=== PATIENT | female | born 1995 | race Two or more races ===

== ENCOUNTER 2017-01-26 16:18 | Emergency (ER) | payer SELFPAY ==
[~2017-01-26] VITALS: Ht 162.6 cm; Wt 81.6 kg
[~2017-01-26 16:18] MED LIST: PREN-96 OR
[2017-01-26 17:48] LABS: Basophils # (auto) 0 uL; Basophils % (auto) 0.2 % (0.0-2.0); DEFINITIVE VIEW TRANSMISSION; Eosinophils # (auto) 0.1 uL; Eosinophils % (auto) 0.6 % (0.0-7.0); Hematocrit 36.5 % (36.0-46.0); Hemoglobin 11.7 g/dL (12.2-16.2); Lymphocytes # (auto) 1.3 uL; Lymphocytes % (auto) 13.6 % (10.0-50.0); Mean Corpuscular Hemoglobin 24.1 pg (28.0-32.0); Mean Corpuscular Hgb Conc. 32.2 g/dL (32.0-36.0); Mean Platelet Volume 7.2 fL (7.4-10.4); Monocytes # (auto) 0.5 uL; Monocytes % (auto) 5.3 % (0.0-12.0); Neutrophils # (auto) 7.6 uL; Neutrophils % (auto) 80.3 % (37.0-80.0); Platelet Count (auto) 433 10^3/uL (140-450); White Blood Cell 9.5 10^3/uL (4.4-10.8)
[2017-01-26 18:12] LABS: Albumin 3.4 g/dL (3.4-5.0); Alkaline Phosphatase 162 U/L (45-117); Anion Gap 9 (5-15); Aspartate Aminotransferase 869 U/L (15-37); Bilirubin, Total 1.1 mg/dL (0.2-1.0); Blood Urea Nitrogen 12 mg/dL (7-18); Calcium 8.9 mg/dL (8.5-10.1); Carbon Dioxide 32 mmol/L (21-32); Chloride 105 mmol/L (98-107); GFR African American 125 mL/min; GFR Non-African American 104 mL/min; Glucose 101 mg/dL (74-106); Potassium 4.2 mmol/L (3.5-5.1); Sodium 146 mmol/L (136-145); Total Protein 7.8 g/dL (6.4-8.2)
[2017-01-26 23:17] LABS: Urine RBC None Seen /hpf (0 - 4)
[2017-01-26 23:39] LABS: Urine Blood Negative /uL (Negative); Urine Color Yellow (Yellow); Urine Glucose Normal (Normal); Urine Ketone Negative (Negative); Urine Mucus FEW (None Seen); Urine Nitrite Negative (Negative); Urine Squamous Epithelial Cell MANY /hpf (<5); Urine pH 7.5 (5.0-8.0)
[2017-01-26 23:46] LABS: Urine Bilirubin 1+ (Negative)
[2017-01-27] MEDS ORDERED: MORPHINE SULFATE 4 MG/ML SYRG IV ONE (02:30)
[2017-01-27] MEDS ORDERED: ONDANSETRON HCL 4 MG/2 ML VIAL IV ONE (02:30)
[2017-01-27] MEDS ORDERED: SODIUM CHLORIDE 0.9% 2,000 ML IV ONE (02:30)
[2017-01-27 04:00] VITALS: BP 112/62
== END 2017-01-27 04:28 | disposition short-term general hospital (02) ==
LOC: ER 16:18 → EDBD 16:18 → ER 01-27 04:28
DX: K80.21 Calculus of gallbladder without cholecystitis with obstruction (principal); J45.909 Unspecified asthma, uncomplicated; R74.0 Nonspecific elevation of levels of transaminase and lactic acid dehydrogenase [LDH]; Z88.0 Allergy status to penicillin
CPT/HCPCS: 36415; 76705; 80053; 81001; 81025; 84484; 85025; 96361; 96374; 96375; 99285; G0434; J2270; J2405; J7030

== ENCOUNTER 2022-03-29 14:22 | Inpatient (IN) | payer MEDICAID, OTHER ==
[~2022-03-29] VITALS: Ht 157.5 cm; Wt 72.6 kg
[2022-03-29] MEDS ORDERED: DERMOPLAST 60ML BOTTLE TOP PRN (18:15)
[2022-03-29] MEDS ORDERED: WITCH HAZEL-GLYCERIN PAD TOP PRN (18:15)
[2022-03-29] MEDS ORDERED: PHISODERM TOP SOLN 240ML BTL TOP PRN (18:15)
[2022-03-29 19:04] LABS: Basophils # (auto) 0 10 ^3/uL (0-0.2); Basophils % (auto) 0.3 % (0.0-2.0); Eosinophils # (auto) 0.1 10 ^3/uL (0-0.8); Hemoglobin 7.9 g/dL (12.2-16.2); Monocytes # (auto) 0.6 10 ^3/uL (0-1.3); Neutrophils # (auto) 8.6 10 ^3/uL (1.6-8.6); Neutrophils % (auto) 83.2 % (37.0-80.0); White Blood Cell 10.3 10^3/uL (4.4-10.8)
[2022-03-29 19:06] LABS: Eosinophils % (auto) 1.1 % (0.0-7.0); Lymphocytes % (auto) 9.7 % (10.0-50.0); Mean Corpuscular Hgb Conc. 32.7 g/dL (32.0-36.0); Mean Corpuscular Volume 64.2 fL (80.0-100.0); Monocytes % (auto) 5.7 % (0.0-12.0); Nucleated Red Blood Cells % 0.4 %; Red Blood Cells 3.74 10^6/uL (4.0-5.20); Red Cell Distribution Width 16.9 % (11.8-14.3)
[2022-03-29 19:14] LABS: INR 0.92 (0.9-1.15); Partial Thromboplastin Time 26.1 sec (23.6-33.0)
[2022-03-29 19:17] LABS: Albumin 1.8 g/dL (3.4-5.0); BUN/Creatinine Ratio 10.3; Calcium 8.4 mg/dL (8.5-10.1)
[2022-03-29 19:19] LABS: Bilirubin, Total 0.3 mg/dL (0.2-1.0); Total Protein 6.4 g/dL (6.4-8.2)
[2022-03-29] MEDS ORDERED: cefTRIAXone 1GM/50ML D5W 50 ML IV SCH (20:00)
[2022-03-29] MEDS: LACTATED RINGER'S 1,000 ML IV SCH (20:22)
[2022-03-29] MEDS: miSOPROStol 50 MCG per PRE-CUT 1/2 TAB VG PRN (21:00)
[2022-03-29 22:48] LABS: Urine Bacteria MANY /hpf (None Seen); Urine Blood Negative /uL (Negative); Urine Specific Gravity 1.007 (1.001-1.035); Urine WBC 1 /hpf (0 - 5)
[2022-03-29 23:03] LABS: Amphetamine Screen, Urine NEGATIVE (NEGATIVE); Barbiturate Scree,Urine NEGATIVE (NEGATIVE); Benzodiazephine Screen, Urine NEGATIVE (NEGATIVE); Cannabinoid Screen, Urine NEGATIVE (NEGATIVE); Cocaine Screen, Urine NEGATIVE (NEGATIVE); Opiate Scree,Urine NEGATIVE (NEGATIVE); Phencyclidine Screen, Urine NEGATIVE (NEGATIVE)
[2022-03-30] MEDS: miSOPROStol 50 MCG per PRE-CUT 1/2 TAB VG PRN ×3 (03:08→11:39)
[2022-03-30] MEDS: LACTATED RINGER'S 1,000 ML IV SCH ×3 (03:51→18:15)
[2022-03-30] MEDS: BUTORPHANOL TARTRATE 2 MG/1 ML VIAL IV PRN ×3 (04:04→23:17)
[2022-03-30] MEDS: FERROUS SULFATE 325mg EC TAB PO SCH ×2 (07:34→18:30)
[2022-03-30] MEDS: cefTRIAXone 1GM/50ML D5W 50 ML IV SCH (08:32)
[2022-03-30] MEDS ORDERED: miSOPROStol 100 mcg TAB ONE (11:35)
[2022-03-30] MEDS: miSOPROStol 50 MCG per PRE-CUT 1/2 TAB PO PRN ×2 (18:06→22:12)
[2022-03-30] MEDS ORDERED: fentaNYL CITRATE 100 MCG/2 ML VL ONE (23:57)
[2022-03-31] MEDS ORDERED: LACT. RINGERS/OXYTOCIN 20UNITS 1,000 ML IV ONE (01:08)
[2022-03-31] MEDS: LACTATED RINGER'S 1,000 ML IV SCH (02:15)
[2022-03-31] MEDS ORDERED: ONDANSETRON ODT 4 MG TAB PO PRN (05:45)
[2022-03-31 06:59] VITALS: BP 119/67
[2022-03-31 07:07] LABS: Rubella Antibodies, IgG <0.90 index (Immune >0.99)
[2022-03-31] MEDS: FERROUS SULFATE 325mg EC TAB PO SCH ×2 (08:04→17:58)
[2022-03-31] MEDS: cefTRIAXone 1GM/50ML D5W 50 ML IV SCH (08:45)
[2022-03-31] MEDS: SODIUM CHLORIDE 0.9% 1,000 ML IV SCH (08:46)
[2022-03-31] MEDS: IBUPROFEN 600 MG TAB PO PRN ×2 (10:30→21:54)
[2022-03-31 10:48] VITALS: BP 116/74
[2022-03-31] MEDS: ACETAMINOPHEN 325 MG TAB PO PRN ×2 (13:38→18:01)
[2022-03-31] MEDS ORDERED: TETANUS-DIPTH-ACEL PERTUSSIS 0.5ML SYR Tdap IM ONE (14:00)
[2022-03-31 15:00] VITALS: BP 119/80
[2022-03-31 18:55] VITALS: BP 103/58
[2022-03-31] MEDS ORDERED: DOCUSATE SOD 100 MG CAP PO SCH (22:00)
[2022-03-31 22:35] VITALS: BP 117/65
[2022-04-01 02:37] VITALS: BP 121/73
[2022-04-01 07:30] VITALS: BP 136/87
[2022-04-01] MEDS: IBUPROFEN 600 MG TAB PO PRN (08:03)
[2022-04-01] MEDS: FERROUS SULFATE 325mg EC TAB PO SCH (08:04)
[2022-04-01] MEDS ORDERED: DOXYCYCLINE 100 MG TAB/CAP PO ONE (08:45)
[2022-04-01] MEDS: cefTRIAXone 1GM/50ML D5W 50 ML IV SCH (09:13)
[2022-04-01] MEDS: SODIUM CHLORIDE 0.9% 1,000 ML IV SCH (09:17)
[2022-04-01] MEDS ORDERED: DOXY100C2 PO ×2 (09:45→11:06)
[2022-04-01 11:09] VITALS: BP 117/69
[2022-04-01] MEDS ORDERED: FER325T PO (12:09)
[2022-04-01] MEDS ORDERED: MEASLES, MUMPS & RUBELLA VAC(MMRII) 0.5ML SC ONE (13:00)
[2022-04-01] MEDS: ACETAMINOPHEN 325 MG TAB PO PRN (13:32)
[2022-04-01 15:02] VITALS: BP 115/75
== END 2022-04-01 17:20 | disposition home or self-care (01) | DRG 560 ==
LOC: LDRP 14:22 → OBSVTOIN 16:50 → LDRP 17:08
PROVIDERS: ADMIT Obstetrics & Gynecology; ATTEND Obstetrics & Gynecology
PROC: 3E0DXGC Introduction of Other Therapeutic Substance into Mouth and Pharynx, External Approach (ICD-10-PCS; 2022-03-30)
PROC: 3E0P7VZ Introduction of Hormone into Female Reproductive, Via Natural or Artificial Opening (ICD-10-PCS; 2022-03-30)
PROC: 10D07Z6 Extraction of Products of Conception, Vacuum, Via Natural or Artificial Opening (ICD-10-PCS; principal; 2022-03-31)
DX: O60.14X0 Preterm labor third trimester with preterm delivery third trimester, not applicable or unspecified (principal); Z37.1 Single stillbirth; O75.3 Other infection during labor; O36.4XX0 Maternal care for intrauterine death, not applicable or unspecified; O32.1XX0 Maternal care for breech presentation, not applicable or unspecified; N39.0 Urinary tract infection, site not specified; F43.22 Adjustment disorder with anxiety; Z20.822 Contact with and (suspected) exposure to COVID-19; O99.02 Anemia complicating childbirth; O99.344 Other mental disorders complicating childbirth; Z3A.29 29 weeks gestation of pregnancy; Z88.0 Allergy status to penicillin; Z59.02 Unsheltered homelessness; Z56.0 Unemployment, unspecified
CPT/HCPCS: 36415; 59409; 76805; 80053; 80307; 81001; 85025; 85610; 85730; 86592; 86703; 86762; 86850; 86900; 86901; 86920; 87340; 90715; 94760; 96360; 96361; 96365; 96366; 96372; 96374; 96375; G0378; J0696; J2590

== ENCOUNTER 2024-09-09 08:48 | Inpatient (IN) | payer MEDICAID ==
[~2024-09-09] VITALS: Ht 170.2 cm; Wt 117.9 kg
[~2024-09-09 08:48] MED LIST changes: +DOXY100C4 PO; +FER325T PO
--- NOTE | 2024-09-09 11:09 | DVH ---
BIOPHYSICAL PROFILE HISTORY: no care TECHNIQUE: Multiple transabdominal real-time grayscale sonographic images through the gravid uterus of the fetus with duplex Doppler color flow and M-mode spectral analysis FINDINGS: There is a single intrauterine with positive cardiac activity. No evidence of placent al previa or abruption. measurements are as follows: BPD: 8.9 cm, 36 weeks 1 day. HC: 32.9 cm, 37 weeks 4 days. AC: 33.4 cm, 37 weeks 2 days. FL: 7.7 cm, 39 weeks 4 days. Average ultrasound age is 37 weeks 5 days with expected date of delivery 09/25/24. Estimated weight is 3293 g. JESSICA measures 7.2 cm. cardiac activity measures 140 beats per minute. IMPRESSION: 1. Single intrauterine with positive cardiac activity measuring 37 weeks 5 days.
--- NOTE | 2024-09-09 11:10 | DVH ---
BIOPHYSICAL PROFILE HISTORY: no care TECHNIQUE: Multiple transabdominal real-time grayscale sonographic images through the gravid uterus of the fetus with duplex Doppler color flow and M-mode spectral analysis FINDINGS: There is a single intrauterine with positive cardiac activity. No evidence of placent al previa or abruption. measurements are as follows: BPD: 8.9 cm, 36 weeks 1 day. HC: 32.9 cm, 37 weeks 4 days. AC: 33.4 cm, 37 weeks 2 days. FL: 7.7 cm, 39 weeks 4 days. Average ultrasound age is 37 weeks 5 days with expected date of delivery 09/1924. Estimated weight is 3293 g. JESSICA measures 7.2 cm. cardiac activity measures 140 beats per minute. IMPRESSION: 1. Single intrauterine with positive cardiac activity measuring 37 weeks 5 days.
[2024-09-09 11:24] LABS: Eosinophils # (auto) 0.1 10 ^3/uL (0-0.8); Monocytes # (auto) 0.6 10 ^3/uL (0-1.3); Red Cell Distribution Width 19.6 % (11.8-14.3)
[2024-09-09 11:24] LABS: Urine Bacteria None Seen /hpf (None Seen)
[2024-09-09 11:26] LABS: Basophils # (auto) 0.1 10 ^3/uL (0-0.2); Basophils % (auto) 0.5 % (0.0-2.0); Eosinophils % (auto) 0.7 % (0.0-7.0); Hematocrit 34.4 % (36.0-46.0); Lymphocytes # (auto) 1.6 10 ^3/uL (0.4-5.4); Lymphocytes % (auto) 14.2 % (10.0-50.0); Mean Corpuscular Hgb Conc. 31.9 g/dL (32.0-36.0); Mean Corpuscular Volume 71.9 fL (80.0-100.0); Neutrophils # (auto) 9.2 10 ^3/uL (1.6-8.6); Neutrophils % (auto) 79.6 % (37.0-80.0); Nucleated Red Blood Cells % 0.6 %; Platelet Count (auto) 321 10^3/uL (140-450); Red Blood Cells 4.79 10^6/uL (4.0-5.20); White Blood Cell 11.6 10^3/uL (4.4-10.8)
[2024-09-09 11:34] LABS: Urine Blood 2+ /uL (Negative); Urine Clarity Turbid (Clear); Urine Color Yellow (Yellow); Urine Hyaline Cast FEW /lpf (0 - 2); Urine Mucus FEW (None Seen); Urine Protein, UAD 1+ (Negative); Urine Specific Gravity 1.025 (1.001-1.035); Urine Urobilinogen Normal (Negative); Urine WBC 43 /hpf (0 - 5)
[2024-09-09 11:54] LABS: Amphetamine Screen, Urine Neg (NEGATIVE); Barbiturate Scree,Urine Neg (NEGATIVE); Benzodiazephine Screen, Urine Neg (NEGATIVE); Cocaine Screen, Urine Neg (NEGATIVE); Opiate Scree,Urine Neg (NEGATIVE)
[2024-09-09 11:55] LABS: Cannabinoid Screen, Urine Neg (NEGATIVE); Phencyclidine Screen, Urine Neg (NEGATIVE)
[2024-09-09 11:56] LABS: Alanine Aminotransferase 15 U/L (7-40); Alkaline Phosphatase 137 U/L (46-116); Anion Gap 8 (5-15); Aspartate Aminotransferase 16 U/L (13-40); BUN/Creatinine Ratio 13.5 (10.0-20.0); Bilirubin, Total 0.3 mg/dL (0.2-1.0); Blood Urea Nitrogen 10 mg/dL (9-23); Calcium 9.6 mg/dL (8.7-10.4); Carbon Dioxide 24 mmol/L (20-31); Chloride 106 mmol/L (98-107); Glucose 93 mg/dL (74-106); Potassium 3.9 mmol/L (3.5-5.1); Sodium 138 mmol/L (136-145); Total Protein 7.1 g/dL (5.7-8.2)
[2024-09-09 12:02] LABS: Uric Acid 7.4 mg/dL (3.1-7.8)
[2024-09-09 12:14] LABS: Vaginal Trichomonas Not Present
[2024-09-09 12:17] LABS: Vaginal Bacteria Few; Vaginal Epithelial Cells Few
[2024-09-09 12:21] LABS: Vaginal Clue Cells Few
[2024-09-09 12:34] LABS: INR 0.92 (0.9-1.15); Partial Thromboplastin Time 24.4 SEC (24.5-34.5); Prothrombin Time 9.8 sec (9.3-11.8)
[2024-09-09] MEDS ORDERED: miSOPROStol 100 mcg TAB SL PRN (12:45)
[2024-09-09] MEDS ORDERED: miSOPROStol 100 mcg TAB PR PRN (12:45)
[2024-09-09] MEDS ORDERED: METHYLERGONOVINE MALEATE 0.2 MG/ML AMP IM PRN (12:45)
[2024-09-09 13:07] VITALS: TEMP 98.5
[2024-09-09] MEDS: PHISODERM TOP SOLN 240ML BTL TOP PRN (13:26)
[2024-09-09] MEDS: WITCH HAZEL-GLYCERIN PAD TOP PRN (13:26)
[2024-09-09] MEDS: DERMOPLAST 60ML BOTTLE TOP PRN (13:26)
[2024-09-09 13:35] LABS: Basophils # (auto) 0 10 ^3/uL (0-0.2); Basophils % (auto) 0.3 % (0.0-2.0); Eosinophils # (auto) 0.1 10 ^3/uL (0-0.8); Eosinophils % (auto) 0.8 % (0.0-7.0); Hematocrit 30.8 % (36.0-46.0); Hemoglobin 9.8 g/dL (12.2-16.2); Lymphocytes # (auto) 1.8 10 ^3/uL (0.4-5.4); Lymphocytes % (auto) 14.7 % (10.0-50.0); Mean Corpuscular Hemoglobin 22.9 pg (28.0-32.0); Mean Corpuscular Hgb Conc. 31.8 g/dL (32.0-36.0); Mean Corpuscular Volume 72.2 fL (80.0-100.0); Monocytes % (auto) 8.1 % (0.0-12.0); Neutrophils # (auto) 9.1 10 ^3/uL (1.6-8.6); Neutrophils % (auto) 76.1 % (37.0-80.0); Nucleated Red Blood Cells % 0.3 %; Platelet Count (auto) 285 10^3/uL (140-450); Red Blood Cells 4.27 10^6/uL (4.0-5.20); Red Cell Distribution Width 19.8 % (11.8-14.3); White Blood Cell 11.9 10^3/uL (4.4-10.8)
[2024-09-09 13:48] LABS: Alanine Aminotransferase 13 U/L (7-40); Albumin 3.6 g/dL (3.2-4.8); Alkaline Phosphatase 121 U/L (46-116); Anion Gap 6 (5-15); Aspartate Aminotransferase 15 U/L (13-40); BUN/Creatinine Ratio 14.9 (10.0-20.0); Blood Urea Nitrogen 11 mg/dL (9-23); Calcium 9.2 mg/dL (8.7-10.4); Carbon Dioxide 23 mmol/L (20-31); Chloride 108 mmol/L (98-107); Glucose 86 mg/dL (74-106); Potassium 4.1 mmol/L (3.5-5.1); Sodium 137 mmol/L (136-145)
[2024-09-09 13:49] LABS: Bilirubin, Total 0.3 mg/dL (0.2-1.0); Total Protein 6.3 g/dL (5.7-8.2)
[2024-09-09] MEDS: NALOXONE HCL 0.4 MG/ML VIAL IV ONE (14:00)
[2024-09-09] MEDS: NALOXONE HCL 2 MG in DEXTROSE 495 ML IV ONE (14:00)
[2024-09-09] MEDS: ePHEDrine SULFATE 50 MG/ML AMP IV ONE (14:00)
[2024-09-09] MEDS: CLINDAMYCIN 900MG IV 50 ML IV SCH (14:06)
[2024-09-09] MEDS: fentaNYL CITRATE 100 MCG/2 ML VL ONE (14:15)
--- NOTE | 2024-09-09 14:15 | DVHHP ---
ADMIT DATE: 09/09/2024 CHIEF COMPLAINT: Labor. HISTORY OF PRESENT ILLNESS: The patient is a 29-year-old 3, para 2 with EDC 08/31/2024 based on the patient's statement with no care. Estimated gestational age based on the patient's EDC 41+ weeks, admitted for labor. The patient's JESSICA was noted to be 7 cm. She was 5 cm, 100%, -1. Ultrasound gives her a due date of 09/25/2024, estimated weight of 3200. The patient has had no care. Denies any vaginal bleeding or rupture of membrane. Denies having any drug exposure. PAST MEDICAL HISTORY: None. PAST SURGICAL HISTORY: None. SOCIAL HISTORY: None. FAMILY HISTORY: None. OBSTETRIC AND GYNECOLOGIC HISTORY: Two normal vaginal delivery. REVIEW OF SYSTEMS: Consistent with HPI. PHYSICAL EXAMINATION: VITAL SIGNS: Stable, afebrile. HEENT: Within normal limits. CARDIOVASCULAR: Regular rate and rhythm. LUNGS: Clear to auscultation. BREASTS: Symmetrical. No masses. ABDOMEN: Gravid. Positive heart. PELVIC: 5-600%, -1 and yun every 2-3 minutes. EXTREMITIES: No clubbing, cyanosis or edema. IMPRESSION: * Term , in active labor. * No care. * Morbid obesity. PLAN: Expectant vaginal delivery. Informed consent obtained. Risks, complication of labor discussed with the patient. Possibility of bleeding, risk of anesthesia discussed with the patient. Options reviewed. All questions answered. The patient fully understands. She wishes to proceed with planned procedure. DO YAO Wright TID: [id number] RECEIPT: [id number]
[2024-09-09] MEDS: ROPIVACAINE HCL 200 ML ONE (17:57)
[2024-09-09] MEDS: LACTATED RINGER'S 1,000 ML IV SCH (20:00)
[2024-09-09] MEDS: LACT. RINGERS/OXYTOCIN 20UNITS 500 ML IV ONE ×2 (22:37→23:15)
--- NOTE | 2024-09-09 23:09 | LDN2 ---
Labor and Delivery Note Date 09/09/24 Age 29 3 Para 3 EDC 10-25 EGA 41wks Diagnosis no care,morbid obesity,meconium, Vaginal Delivery: VTX Vacuum Assisted: Yes Placenta: Spontaneous Sex: Male Nuchal Cord Transected: No Amniotic Fluid: Thick Anesthesia epidural Episiotomy: No Extension: Yes (1st deg periurethral lac,1st deg perineal lac) Repaired with 2-0 chromic EBL 300ml Labs Laboratory Tests 09/09/24 10:55: HIV (1&2) Antibody Negative 02/26/16 19:00: Rubella Antibody [facility] 09/09/24 10:55: Blood Type A POSITIVE Complications none Conditions stable Comments/Significant Med Everardo spec exam no cxal lac,vaccum applied to facilitate del due to variable dec and poor pushing effort decl noted one application of vaccum successful ,baby handed over to respiratory and nurse in attendance.cook cold meat called stat ,er physician called stat.cord blood gases done.pt remained in stable condition. mec noticed half hr before delivery for which amnioinfusion started for both char bettencourt and mec KARLO HENDERSON DO Sep 09, 2024 23:09
--- NOTE | 2024-09-09 23:50 | DVHPN2 ---
[facility] Labor Progress Note Date and Time Seen Date Seen: Sep 09, 2024 Time Seen: 20:21 Subjective Patient reports: No new complaints Monitoring Method Monitoring Method: External Heart Rate Heart Rate Baseline: 140 Heart Rate Variability: Minimal Presence of FHR Accelerations: No Presence of FHR Decelerations: Yes Heart Rate Type of Decel: Variable Decelerations Are all 5 Components of the FH: Yes Contractions Contractions Frequency: Other (3-4 in 10minutes) Contractions Intensity: Strong Contractions Resting Tone: Relaxed Membranes Membranes: Ruptured Amniotic Fluid Color: Clear Vaginal Exam Vag Exam Deferred: No Vaginal Exam Dilation: 7 Vaginal Exam Effacement: 90 Vaginal Exam Station: -2 Vaginal Exam Presentation: VTX Vaginal Exam Show: Moderate Medications Medications - Pitocin: No Medication - Epidural: Yes Lab Results Lab Results Vital Signs Date Time Temp Pulse Resp B/P (MAP) Pulse Ox O2 Delivery O2 Flow Rate FiO2 09/10/24 04:00 Room Air 09/10/24 03:00 97.8 92 18 132/77 (95) 99 97.8 I & O 09/10/24 07:00 Output Total 450 ml Balance -450 ml Output Urine Total 450 ml Current Medications Medications (Trade) Dose Ordered Sig/Emily Start Time Stop Time Status Last Admin Dose Admin Lactated Ringer's 1,000 ml @ 125 mls/hr Q8H 09/09/24 12:15 09/10/24 06:02 DC 09/09/24 20:00 125 MLS/HR [place] Sandy (Tucks) 1 pad PRN PRN 09/09/24 12:15 09/09/24 13:26 1 PAD Sodium Lauryl Sulfate (Phisoderm) 240 ml PRN PRN 09/09/24 12:15 09/09/24 13:26 240 ML Benzocaine (Dermoplast) 1 applic PRN PRN 09/09/24 12:15 09/09/24 13:26 1 APPLIC Butorphanol Tartrate (Stadol Injection) 1 mg Q4HPRN PRN 09/09/24 12:15 09/10/24 06:02 DC Butorphanol Tartrate (Stadol Injection) 2 mg Q4HPRN PRN 09/09/24 12:15 09/10/24 06:02 DC Lidocaine HCl (Xylocaine) 20 ml ONCE PRN 09/09/24 12:15 09/10/24 06:02 DC Oxytocin 500 ml @ 999 mls/hr Q31M ONCE 09/09/24 12:45 09/10/24 06:02 DC 09/09/24 22:37 999 MLS/HR Oxytocin 500 ml @ 125 mls/hr Q4H ONCE 09/09/24 13:15 09/10/24 06:02 DC 09/09/24 23:15 125 MLS/HR Methylergonovine Maleate (Methergine) 0.2 mg Q8HP PRN 09/09/24 12:45 09/11/24 12:44 Misoprostol (Cytotec) 200 mcg ONCE PRN 09/09/24 12:45 Misoprostol (Cytotec) 600 mcg ONCE PRN 09/09/24 12:45 Clindamycin Phosphate 50 ml @ 50 mls/hr Q8HR 09/09/24 13:30 09/10/24 05:45 50 MLS/HR Naloxone HCl (Narcan) 0.2 mg PRN ONCE 09/09/24 14:00 09/10/24 06:02 DC Ephedrine Sulfate (ePHEDrine SULFATE) 10 mg PRN ONCE 09/09/24 14:00 09/10/24 06:02 DC Naloxone HCl 2 mg/ Dextrose 500 ml @ 100 mls/hr Q5H ONCE 09/09/24 14:00 09/10/24 06:02 DC Acetaminophen (Tylenol Tablet) 650 mg Q4HP PRN 09/10/24 00:45 Ibuprofen (Motrin Tablet) 800 mg Q6HR 09/10/24 06:00 09/10/24 00:44 800 MG Laboratory Tests Test 09/09/24 13:16 09/09/24 11:00 09/09/24 10:55 09/09/24 10:30 Range/Units White Blood Count 11.9 H 4.4-10.8 10^3/uL Red Blood Count 4.27 4.0-5.20 10^6/uL Hemoglobin 9.8 L 12.2-16.2 g/dL Hematocrit 30.8 #L 36.0-46.0 % Mean Corpuscular Volume 72.2 L 80.0-100.0 fL Mean Corpuscular Hemoglobin 22.9 L 28.0-32.0 pg Mean Corpuscular Hemoglobin Concent 31.8 L 32.0-36.0 g/dL Red Cell Distribution Width 19.8 H 11.8-14.3 % Platelet Count 285 140-450 10^3/uL Mean Platelet Volume 7.4 6.9-10.8 fL Neutrophils (%) (Auto) 76.1 37.0-80.0 % Lymphocytes (%) (Auto) 14.7 10.0-50.0 % Monocytes (%) (Auto) 8.1 0.0-12.0 % Eosinophils (%) (Auto) 0.8 0.0-7.0 % Basophils (%) (Auto) 0.3 0.0-2.0 % Neutrophils # (Auto) 9.1 H 1.6-8.6 10 ^3/uL Lymphocytes # (Auto) 1.8 0.4-5.4 10 ^3/uL Monocytes # (Auto) 1.0 0-1.3 10 ^3/uL Eosinophils # (Auto) 0.1 0-0.8 10 ^3/uL Basophils # (Auto) 0 0-0.2 10 ^3/uL Nucleated Red Blood Cells 0.3 % Sodium Level 137 136-145 mmol/L Potassium Level 4.1 3.5-5.1 mmol/L Chloride Level 108 H 98-107 mmol/L Carbon Dioxide Level 23 20-31 mmol/L Anion Gap 6 5-15 Blood Urea Nitrogen 11 9-23 mg/dL Creatinine 0.74 0.550-1.02 mg/dL Glomerular Filtration Rate Calc 112 >90 mL/min BUN/Creatinine Ratio 14.9 10.0-20.0 Serum Glucose 86 74-106 mg/dL Calcium Level 9.2 8.7-10.4 mg/dL Total Bilirubin 0.3 0.2-1.0 mg/dL Aspartate Amino Transferase (AST) 15 13-40 U/L Alanine Aminotransferase (ALT) 13 7-40 U/L Alkaline Phosphatase 121 H 46-116 U/L Total Protein 6.3 5.7-8.2 g/dL Albumin 3.6 3.2-4.8 g/dL Vaginal WBC (Wet Prep) Moderate Vaginal RBC (Wet Prep) None seen Vaginal Epithelial Cells (Wet Prep) Few Vaginal Bacteria (Wet Prep) Few Vaginal Trichomonas (Wet Prep) Not present Vaginal Yeast (Wet Prep) None seen Vaginal Clue Cells (Wet Prep) Few Prothrombin Time 9.8 9.3-11.8 sec Prothrombin Time INR 0.92 0.9-1.15 Activated Partial Thromboplast Time 24.4 L 24.5-34.5 SEC Fibrinogen 460 H 177-375 mg/dL Uric Acid 7.4 3.1-7.8 mg/dL Rapid Plasma Reagin Pending Chlamydia trachomatis (IRMA) Pending Hepatitis B Surface Antigen Pending Hepatitis C Antibody Pending HIV (1&2) Antibody Negative Negative Neisseria gonorrhoeae (IRMA) Pending Rubella IgG Antibody Pending Urine Color Yellow Yellow Urine Clarity Turbid H Clear Urine pH 6.0 5.0-9.0 Urine Specific [place] 1.025 1.001-1.035 Urine Protein 1+ H Negative Urine Ketones Negative Negative Urine Blood 2+ H Negative /uL Urine Nitrite Negative Negative Urine Bilirubin Negative Negative Urine Urobilinogen Normal Negative mg/dL Urine Leukocyte Esterase 3+ Negative /uL Urine RBC 4 0 - 4 /hpf Urine WBC 43 0 - 5 /hpf Urine Squamous Epithelial Cells Mod <5 /hpf Urine Bacteria None seen None Seen /hpf Urine Hyaline Casts Few 0 - 2 /lpf Urine Mucus Few None Seen Urine Glucose Normal Normal mg/dL Urine Opiates Screen Neg NEGATIVE Urine Fentanyl Screen Neg NEGATIVE Urine Barbiturates Screen Neg NEGATIVE Urine Phencyclidine Screen Neg NEGATIVE Urine Amphetamines Screen Neg NEGATIVE Urine Benzodiazepines Screen Neg NEGATIVE Urine Cocaine Screen Neg NEGATIVE Urine Cannabinoids Screen Neg NEGATIVE Assessment Assessment IUP at 41 weeks 2d by LMP; No Care Maternal Obesity Labor Category 2 EFM Tracing Plan Plan FSE applied for better monitoring of FHR IV Fluid bolus Frequent position change to relieve cord compression, facilitate labor and descent supportive care Plan discussed with: Patient ELLUL KHALILISAACJINA Reyes CNM Sep 09, 2024 23:50
[2024-09-10] VITALS (7 sets, daily range): BP systolic 112–132; BP diastolic 62–77; PULSE 78–97; RESP 16–18; TEMP 97.3–98.3; O2SAT 97–99
--- NOTE | 2024-09-10 00:24 | DVHPN2 ---
[facility] Labor Progress Note Date and Time Seen Date Seen: Sep 10, 2024 Time Seen: 20:38 Subjective Patient reports: No new complaints Monitoring Method Monitoring Method: Internal Heart Rate Heart Rate Variability: Minimal Presence of FHR Decelerations: Yes Contractions Contractions Frequency: Other (4 in 10minutes) Duration of Contraction: 60 Contractions Intensity: Moderate, Strong Contractions Resting Tone: Relaxed Membranes Membranes: Ruptured Amniotic Fluid Color: Clear Vaginal Exam Vaginal Exam Dilation: 7 Vaginal Exam Effacement: 100 Vaginal Exam Station: -2 Vaginal Exam Presentation: VTX Vaginal Exam Show: Small Medications Medications - Pitocin: No Medication - Epidural: Yes Lab Results Lab Results Vital Signs Date Time Temp Pulse Resp B/P (MAP) Pulse Ox O2 Delivery O2 Flow Rate FiO2 09/10/24 04:00 Room Air 09/10/24 03:00 97.8 92 18 132/77 (95) 99 97.8 I & O 09/10/24 07:00 Output Total 450 ml Balance -450 ml Output Urine Total 450 ml Current Medications Medications (Trade) Dose Ordered Sig/Emily Start Time Stop Time Status Last Admin Dose Admin Lactated Ringer's 1,000 ml @ 125 mls/hr Q8H 09/09/24 12:15 09/10/24 06:02 DC 09/09/24 20:00 125 MLS/HR Narda Delgado (Tucks) 1 pad PRN PRN 09/09/24 12:15 09/09/24 13:26 1 PAD Sodium Lauryl Sulfate (Phisoderm) 240 ml PRN PRN 09/09/24 12:15 09/09/24 13:26 240 ML Benzocaine (Dermoplast) 1 applic PRN PRN 09/09/24 12:15 09/09/24 13:26 1 APPLIC Butorphanol Tartrate (Stadol Injection) 1 mg Q4HPRN PRN 09/09/24 12:15 09/10/24 06:02 DC Butorphanol Tartrate (Stadol Injection) 2 mg Q4HPRN PRN 09/09/24 12:15 09/10/24 06:02 DC Lidocaine HCl (Xylocaine) 20 ml ONCE PRN 09/09/24 12:15 09/10/24 06:02 DC Oxytocin 500 ml @ 999 mls/hr Q31M ONCE 09/09/24 12:45 09/10/24 06:02 DC 09/09/24 22:37 999 MLS/HR Oxytocin 500 ml @ 125 mls/hr Q4H ONCE 09/09/24 13:15 09/10/24 06:02 DC 09/09/24 23:15 125 MLS/HR Methylergonovine Maleate (Methergine) 0.2 mg Q8HP PRN 09/09/24 12:45 09/11/24 12:44 Misoprostol (Cytotec) 200 mcg ONCE PRN 09/09/24 12:45 Misoprostol (Cytotec) 600 mcg ONCE PRN 09/09/24 12:45 Clindamycin Phosphate 50 ml @ 50 mls/hr Q8HR 09/09/24 13:30 09/10/24 05:45 50 MLS/HR Naloxone HCl (Narcan) 0.2 mg PRN ONCE 09/09/24 14:00 09/10/24 06:02 DC Ephedrine Sulfate (ePHEDrine SULFATE) 10 mg PRN ONCE 09/09/24 14:00 09/10/24 06:02 DC Naloxone HCl 2 mg/ Dextrose 500 ml @ 100 mls/hr Q5H ONCE 09/09/24 14:00 09/10/24 06:02 DC Acetaminophen (Tylenol Tablet) 650 mg Q4HP PRN 09/10/24 00:45 Ibuprofen (Motrin Tablet) 800 mg Q6HR 09/10/24 06:00 09/10/24 00:44 800 MG Laboratory Tests Test 09/09/24 13:16 09/09/24 11:00 09/09/24 10:55 09/09/24 10:30 Range/Units White Blood Count 11.9 H 4.4-10.8 10^3/uL Red Blood Count 4.27 4.0-5.20 10^6/uL Hemoglobin 9.8 L 12.2-16.2 g/dL Hematocrit 30.8 #L 36.0-46.0 % Mean Corpuscular Volume 72.2 L 80.0-100.0 fL Mean Corpuscular Hemoglobin 22.9 L 28.0-32.0 pg Mean Corpuscular Hemoglobin Concent 31.8 L 32.0-36.0 g/dL Red Cell Distribution Width 19.8 H 11.8-14.3 % Platelet Count 285 140-450 10^3/uL Mean Platelet Volume 7.4 6.9-10.8 fL Neutrophils (%) (Auto) 76.1 37.0-80.0 % Lymphocytes (%) (Auto) 14.7 10.0-50.0 % Monocytes (%) (Auto) 8.1 0.0-12.0 % Eosinophils (%) (Auto) 0.8 0.0-7.0 % Basophils (%) (Auto) 0.3 0.0-2.0 % Neutrophils # (Auto) 9.1 H 1.6-8.6 10 ^3/uL Lymphocytes # (Auto) 1.8 0.4-5.4 10 ^3/uL Monocytes # (Auto) 1.0 0-1.3 10 ^3/uL Eosinophils # (Auto) 0.1 0-0.8 10 ^3/uL Basophils # (Auto) 0 0-0.2 10 ^3/uL Nucleated Red Blood Cells 0.3 % Sodium Level 137 136-145 mmol/L Potassium Level 4.1 3.5-5.1 mmol/L Chloride Level 108 H 98-107 mmol/L Carbon Dioxide Level 23 20-31 mmol/L Anion Gap 6 5-15 Blood Urea Nitrogen 11 9-23 mg/dL Creatinine 0.74 0.550-1.02 mg/dL Glomerular Filtration Rate Calc 112 >90 mL/min BUN/Creatinine Ratio 14.9 10.0-20.0 Serum Glucose 86 74-106 mg/dL Calcium Level 9.2 8.7-10.4 mg/dL Total Bilirubin 0.3 0.2-1.0 mg/dL Aspartate Amino Transferase (AST) 15 13-40 U/L Alanine Aminotransferase (ALT) 13 7-40 U/L Alkaline Phosphatase 121 H 46-116 U/L Total Protein 6.3 5.7-8.2 g/dL Albumin 3.6 3.2-4.8 g/dL Vaginal WBC (Wet Prep) Moderate Vaginal RBC (Wet Prep) None seen Vaginal Epithelial Cells (Wet Prep) Few Vaginal Bacteria (Wet Prep) Few Vaginal Trichomonas (Wet Prep) Not present Vaginal Yeast (Wet Prep) None seen Vaginal Clue Cells (Wet Prep) Few Prothrombin Time 9.8 9.3-11.8 sec Prothrombin Time INR 0.92 0.9-1.15 Activated Partial Thromboplast Time 24.4 L 24.5-34.5 SEC Fibrinogen 460 H 177-375 mg/dL Uric Acid 7.4 3.1-7.8 mg/dL Rapid Plasma Reagin Pending Chlamydia trachomatis (IRMA) Pending Hepatitis B Surface Antigen Pending Hepatitis C Antibody Pending HIV (1&2) Antibody Negative Negative Neisseria gonorrhoeae (IRMA) Pending Rubella IgG Antibody Pending Urine Color Yellow Yellow Urine Clarity Turbid H Clear Urine pH 6.0 5.0-9.0 Urine Specific [place] 1.025 1.001-1.035 Urine Protein 1+ H Negative Urine Ketones Negative Negative Urine Blood 2+ H Negative /uL Urine Nitrite Negative Negative Urine Bilirubin Negative Negative Urine Urobilinogen Normal Negative mg/dL Urine Leukocyte Esterase 3+ Negative /uL Urine RBC 4 0 - 4 /hpf Urine WBC 43 0 - 5 /hpf Urine Squamous Epithelial Cells Mod <5 /hpf Urine Bacteria None seen None Seen /hpf Urine Hyaline Casts Few 0 - 2 /lpf Urine Mucus Few None Seen Urine Glucose Normal Normal mg/dL Urine Opiates Screen Neg NEGATIVE Urine Fentanyl Screen Neg NEGATIVE Urine Barbiturates Screen Neg NEGATIVE Urine Phencyclidine Screen Neg NEGATIVE Urine Amphetamines Screen Neg NEGATIVE Urine Benzodiazepines Screen Neg NEGATIVE Urine Cocaine Screen Neg NEGATIVE Urine Cannabinoids Screen Neg NEGATIVE Assessment Assessment IUP at 41weeks 2d No Care Severe Obesity Category 2 FHR Tracing Plan Plan IUPC placed Amnioinfusion to relieve variable decelerations frequent position change to facilitate labor and descent Supportive care Plan discussed with: Patient ISAAC GALLEGOS CNM Sep 10, 2024 00:24
[2024-09-10] MEDS: IBUPROFEN 800 MG TAB PO SCH (00:44)
[2024-09-10] MEDS: BUTORPHANOL TARTRATE 2 MG/1 ML VIAL IV PRN ×2 (01:05)
[2024-09-10] MEDS: LIDOCAINE 2%HCL (LOCAL ANESTH.) INJ 20ML MDV IJ PRN (01:05)
--- NOTE | 2024-09-10 06:47 | DVHPN2 ---
Progress Note Date Seen: Sep 10, 2024 Subjective S: Lochia minimal. Regular diet well tolerated. Ambulating and voiding well w/o feeling dizzy or lightheaded. Perineal pain relieved with topical analgesics and cramps with oral analgesics. Passing flatus but no vital signs Vital Sign Date Time Temp Pulse Resp B/P (MAP) Pulse Ox O2 Delivery O2 Flow Rate FiO2 09/10/24 04:00 Room Air 09/10/24 03:00 97.8 92 18 132/77 (95) 99 97.8 Total Intake and Output 09/09/24 09/09/24 09/10/24 15:00 23:00 07:00 Output Total 450 ml Balance -450 ml medications Current Medications Medications Dose Ordered Sig/Emily Route Start Time Stop Time Status Last Admin Dose Admin Narda Sandy 1 pad PRN PRN TOP 09/09/24 12:15 09/09/24 13:26 1 PAD Sodium Lauryl Sulfate 240 ml PRN PRN TOP 09/09/24 12:15 09/09/24 13:26 240 ML Benzocaine 1 applic PRN PRN TOP 09/09/24 12:15 09/09/24 13:26 1 APPLIC Methylergonovine Maleate 0.2 mg Q8HP PRN IM 09/09/24 12:45 09/11/24 12:44 Misoprostol 200 mcg ONCE PRN SL 09/09/24 12:45 Misoprostol 600 mcg ONCE PRN MT 09/09/24 12:45 Clindamycin Phosphate 50 ml @ 50 mls/hr Q8HR IV 09/09/24 13:30 09/10/24 05:45 50 MLS/HR Acetaminophen 650 mg Q4HP PRN PO 09/10/24 00:45 Ibuprofen 800 mg Q6HR PO 09/10/24 06:00 09/10/24 00:44 800 MG laboratory and microbiology Laboratory Tests 09/09/24 13:16 Test 09/09/24 13:16 Range/Units Serum Glucose 86 74-106 mg/dL Objective O: A&O x3 NAD. Afebrile, VSS Chest: heart and lung sounds normal. Breasts: Nipples intact w/o cracks or soreness Abdomen: normal BS, soft, non-tender, no rebound or guarding, fundus firm @ U- 1, Perineum:- no edema, or erythema, laceration site with sutures intact, edges in good approximation. Extremities: no edema or tenderness Lochia - minimal Assessment/Plan 29yo ppd# 1 s/p VAVD doing well. Anemia Blood Type: A Rh: Positive transferred Rubella: Immune Pain control with oral medications Bowel regimen: Increase fluid intake and fiber in diet, Laxative PRN Discharge plan: Daily assessment findings will determine when to discharge Plan discussed with: Patient ISAAC GALLEGOS CNM Sep 10, 2024 06:47
--- NOTE | 2024-09-10 08:37 | DVHPN2 ---
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 Meconium Vaginal Exam Vaginal Exam Dilation: 10 Vaginal Exam Effacement: 100 Vaginal Exam Station: 0 (VE by RN) Vaginal Exam Presentation: VTX Vaginal Exam Show: Small Medications Medications - Pitocin: No Medication - Epidural: No Lab Results Lab Results Vital Signs Date Time Temp Pulse Resp B/P (MAP) Pulse Ox O2 Delivery O2 Flow Rate FiO2 09/10/24 04:00 Room Air 09/10/24 03:00 97.8 92 18 132/77 (95) 99 97.8 I & O 09/10/24 07:00 Output Total 450 ml Balance -450 ml Output Urine Total 450 ml Current Medications Medications (Trade) Dose Ordered Sig/Emily Start Time Stop Time Status Last Admin Dose Admin Lactated Ringer's 1,000 ml @ 125 mls/hr Q8H 09/09/24 12:15 09/10/24 06:02 DC 09/09/24 20:00 125 MLS/HR [place] (Tucks) 1 pad PRN PRN 09/09/24 12:15 09/09/24 13:26 1 PAD Sodium Lauryl Sulfate (Phisoderm) 240 ml PRN PRN 09/09/24 12:15 09/09/24 13:26 240 ML Benzocaine (Dermoplast) 1 applic PRN PRN 09/09/24 12:15 09/09/24 13:26 1 APPLIC Butorphanol Tartrate (Stadol Injection) 1 mg Q4HPRN PRN 09/09/24 12:15 09/10/24 06:02 DC Butorphanol Tartrate (Stadol Injection) 2 mg Q4HPRN PRN 09/09/24 12:15 09/10/24 06:02 DC Lidocaine HCl (Xylocaine) 20 ml ONCE PRN 09/09/24 12:15 09/10/24 06:02 DC Oxytocin 500 ml @ 999 mls/hr Q31M ONCE 09/09/24 12:45 09/10/24 06:02 DC 09/09/24 22:37 999 MLS/HR Oxytocin 500 ml @ 125 mls/hr Q4H ONCE 09/09/24 13:15 09/10/24 06:02 DC 09/09/24 23:15 125 MLS/HR Methylergonovine Maleate (Methergine) 0.2 mg Q8HP PRN 09/09/24 12:45 09/11/24 12:44 Misoprostol (Cytotec) 200 mcg ONCE PRN 09/09/24 12:45 Misoprostol (Cytotec) 600 mcg ONCE PRN 09/09/24 12:45 Clindamycin Phosphate 50 ml @ 50 mls/hr Q8HR 09/09/24 13:30 09/10/24 05:45 50 MLS/HR Naloxone HCl (Narcan) 0.2 mg PRN ONCE 09/09/24 14:00 09/10/24 06:02 DC Ephedrine Sulfate (ePHEDrine SULFATE) 10 mg PRN ONCE 09/09/24 14:00 09/10/24 06:02 DC Naloxone HCl 2 mg/ Dextrose 500 ml @ 100 mls/hr Q5H ONCE 09/09/24 14:00 09/10/24 06:02 DC Acetaminophen (Tylenol Tablet) 650 mg Q4HP PRN 09/10/24 00:45 Ibuprofen (Motrin Tablet) 800 mg Q6HR 09/10/24 06:00 09/10/24 00:44 800 MG Laboratory Tests Test 09/09/24 13:16 09/09/24 11:00 09/09/24 10:55 09/09/24 10:30 Range/Units White Blood Count 11.9 H 4.4-10.8 10^3/uL Red Blood Count 4.27 4.0-5.20 10^6/uL Hemoglobin 9.8 L 12.2-16.2 g/dL Hematocrit 30.8 #L 36.0-46.0 % Mean Corpuscular Volume 72.2 L 80.0-100.0 fL Mean Corpuscular Hemoglobin 22.9 L 28.0-32.0 pg Mean Corpuscular Hemoglobin Concent 31.8 L 32.0-36.0 g/dL Red Cell Distribution Width 19.8 H 11.8-14.3 % Platelet Count 285 140-450 10^3/uL Mean Platelet Volume 7.4 6.9-10.8 fL Neutrophils (%) (Auto) 76.1 37.0-80.0 % Lymphocytes (%) (Auto) 14.7 10.0-50.0 % Monocytes (%) (Auto) 8.1 0.0-12.0 % Eosinophils (%) (Auto) 0.8 0.0-7.0 % Basophils (%) (Auto) 0.3 0.0-2.0 % Neutrophils # (Auto) 9.1 H 1.6-8.6 10 ^3/uL Lymphocytes # (Auto) 1.8 0.4-5.4 10 ^3/uL Monocytes # (Auto) 1.0 0-1.3 10 ^3/uL Eosinophils # (Auto) 0.1 0-0.8 10 ^3/uL Basophils # (Auto) 0 0-0.2 10 ^3/uL Nucleated Red Blood Cells 0.3 % Sodium Level 137 136-145 mmol/L Potassium Level 4.1 3.5-5.1 mmol/L Chloride Level 108 H 98-107 mmol/L Carbon Dioxide Level 23 20-31 mmol/L Anion Gap 6 5-15 Blood Urea Nitrogen 11 9-23 mg/dL Creatinine 0.74 0.550-1.02 mg/dL Glomerular Filtration Rate Calc 112 >90 mL/min BUN/Creatinine Ratio 14.9 10.0-20.0 Serum Glucose 86 74-106 mg/dL Calcium Level 9.2 8.7-10.4 mg/dL Total Bilirubin 0.3 0.2-1.0 mg/dL Aspartate Amino Transferase (AST) 15 13-40 U/L Alanine Aminotransferase (ALT) 13 7-40 U/L Alkaline Phosphatase 121 H 46-116 U/L Total Protein 6.3 5.7-8.2 g/dL Albumin 3.6 3.2-4.8 g/dL Vaginal WBC (Wet Prep) Moderate Vaginal RBC (Wet Prep) None seen Vaginal Epithelial Cells (Wet Prep) Few Vaginal Bacteria (Wet Prep) Few Vaginal Trichomonas (Wet Prep) Not present Vaginal Yeast (Wet Prep) None seen Vaginal Clue Cells (Wet Prep) Few Prothrombin Time 9.8 9.3-11.8 sec Prothrombin Time INR 0.92 0.9-1.15 Activated Partial Thromboplast Time 24.4 L 24.5-34.5 SEC Fibrinogen 460 H 177-375 mg/dL Uric Acid 7.4 3.1-7.8 mg/dL Rapid Plasma Reagin Pending Chlamydia trachomatis (IRMA) Pending Hepatitis B Surface Antigen Pending Hepatitis C Antibody Pending HIV (1&2) Antibody Negative Negative Neisseria gonorrhoeae (IRMA) Pending Rubella IgG Antibody Pending Urine Color Yellow Yellow Urine Clarity Turbid H Clear Urine pH 6.0 5.0-9.0 Urine Specific [place] 1.025 1.001-1.035 Urine Protein 1+ H Negative Urine Ketones Negative Negative Urine Blood 2+ H Negative /uL Urine Nitrite Negative Negative Urine Bilirubin Negative Negative Urine Urobilinogen Normal Negative mg/dL Urine Leukocyte Esterase 3+ Negative /uL Urine RBC 4 0 - 4 /hpf Urine WBC 43 0 - 5 /hpf Urine Squamous Epithelial Cells Mod <5 /hpf Urine Bacteria None seen None Seen /hpf Urine Hyaline Casts Few 0 - 2 /lpf Urine Mucus Few None Seen Urine Glucose Normal Normal mg/dL Urine Opiates Screen Neg NEGATIVE Urine Fentanyl Screen Neg NEGATIVE Urine Barbiturates Screen Neg NEGATIVE Urine Phencyclidine Screen Neg NEGATIVE Urine Amphetamines Screen Neg NEGATIVE Urine Benzodiazepines Screen Neg NEGATIVE Urine Cocaine Screen Neg NEGATIVE Urine Cannabinoids Screen Neg NEGATIVE Consulting with Regarding Informed Dr Seo re: FHR Tracing and labor status Assessment Assessment IUP at 41w 2s No Care Obesity Category 2 FHR Tracing Second Stage of Labor Plan Plan Continue amnioinfusion and position changes Anticipate very soon Plan discussed with: Patient LUL GALLGEOSZABETH Amy [facility] Sep 10, 2024 08:37
--- NOTE | 2024-09-10 08:48 | DVHPN2 ---
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 Meconium Vaginal Exam Vag Exam Deferred: No Vaginal Exam Dilation: 10 Vaginal Exam Effacement: 100 Vaginal Exam Station: -1 Vaginal Exam Presentation: VTX Vaginal Exam Show: Small Medications Medications - Pitocin: No Medication - Epidural: No Lab Results Lab Results Vital Signs Date Time Temp Pulse Resp B/P (MAP) Pulse Ox O2 Delivery O2 Flow Rate FiO2 09/10/24 04:00 Room Air 09/10/24 03:00 97.8 92 18 132/77 (95) 99 97.8 I & O 09/10/24 07:00 Output Total 450 ml Balance -450 ml Output Urine Total 450 ml Current Medications Medications (Trade) Dose Ordered Sig/Emily Start Time Stop Time Status Last Admin Dose Admin Lactated Ringer's 1,000 ml @ 125 mls/hr Q8H 09/09/24 12:15 09/10/24 06:02 DC 09/09/24 20:00 125 MLS/HR Narda Delgado (Tucks) 1 pad PRN PRN 09/09/24 12:15 09/09/24 13:26 1 PAD Sodium Lauryl Sulfate (Phisoderm) 240 ml PRN PRN 09/09/24 12:15 09/09/24 13:26 240 ML Benzocaine (Dermoplast) 1 applic PRN PRN 09/09/24 12:15 09/09/24 13:26 1 APPLIC Butorphanol Tartrate (Stadol Injection) 1 mg Q4HPRN PRN 09/09/24 12:15 09/10/24 06:02 DC Butorphanol Tartrate (Stadol Injection) 2 mg Q4HPRN PRN 09/09/24 12:15 09/10/24 06:02 DC Lidocaine HCl (Xylocaine) 20 ml ONCE PRN 09/09/24 12:15 09/10/24 06:02 DC Oxytocin 500 ml @ 999 mls/hr Q31M ONCE 09/09/24 12:45 09/10/24 06:02 DC 09/09/24 22:37 999 MLS/HR Oxytocin 500 ml @ 125 mls/hr Q4H ONCE 09/09/24 13:15 09/10/24 06:02 DC 09/09/24 23:15 125 MLS/HR Methylergonovine Maleate (Methergine) 0.2 mg Q8HP PRN 09/09/24 12:45 09/11/24 12:44 Misoprostol (Cytotec) 200 mcg ONCE PRN 09/09/24 12:45 Misoprostol (Cytotec) 600 mcg ONCE PRN 09/09/24 12:45 Clindamycin Phosphate 50 ml @ 50 mls/hr Q8HR 09/09/24 13:30 09/10/24 05:45 50 MLS/HR Naloxone HCl (Narcan) 0.2 mg PRN ONCE 09/09/24 14:00 09/10/24 06:02 DC Ephedrine Sulfate (ePHEDrine SULFATE) 10 mg PRN ONCE 09/09/24 14:00 09/10/24 06:02 DC Naloxone HCl 2 mg/ Dextrose 500 ml @ 100 mls/hr Q5H ONCE 09/09/24 14:00 09/10/24 06:02 DC Acetaminophen (Tylenol Tablet) 650 mg Q4HP PRN 09/10/24 00:45 Ibuprofen (Motrin Tablet) 800 mg Q6HR 09/10/24 06:00 09/10/24 00:44 800 MG Laboratory Tests Test 09/09/24 13:16 09/09/24 11:00 09/09/24 10:55 09/09/24 10:30 Range/Units White Blood Count 11.9 H 4.4-10.8 10^3/uL Red Blood Count 4.27 4.0-5.20 10^6/uL Hemoglobin 9.8 L 12.2-16.2 g/dL Hematocrit 30.8 #L 36.0-46.0 % Mean Corpuscular Volume 72.2 L 80.0-100.0 fL Mean Corpuscular Hemoglobin 22.9 L 28.0-32.0 pg Mean Corpuscular Hemoglobin Concent 31.8 L 32.0-36.0 g/dL Red Cell Distribution Width 19.8 H 11.8-14.3 % Platelet Count 285 140-450 10^3/uL Mean Platelet Volume 7.4 6.9-10.8 fL Neutrophils (%) (Auto) 76.1 37.0-80.0 % Lymphocytes (%) (Auto) 14.7 10.0-50.0 % Monocytes (%) (Auto) 8.1 0.0-12.0 % Eosinophils (%) (Auto) 0.8 0.0-7.0 % Basophils (%) (Auto) 0.3 0.0-2.0 % Neutrophils # (Auto) 9.1 H 1.6-8.6 10 ^3/uL Lymphocytes # (Auto) 1.8 0.4-5.4 10 ^3/uL Monocytes # (Auto) 1.0 0-1.3 10 ^3/uL Eosinophils # (Auto) 0.1 0-0.8 10 ^3/uL Basophils # (Auto) 0 0-0.2 10 ^3/uL Nucleated Red Blood Cells 0.3 % Sodium Level 137 136-145 mmol/L Potassium Level 4.1 3.5-5.1 mmol/L Chloride Level 108 H 98-107 mmol/L Carbon Dioxide Level 23 20-31 mmol/L Anion Gap 6 5-15 Blood Urea Nitrogen 11 9-23 mg/dL Creatinine 0.74 0.550-1.02 mg/dL Glomerular Filtration Rate Calc 112 >90 mL/min BUN/Creatinine Ratio 14.9 10.0-20.0 Serum Glucose 86 74-106 mg/dL Calcium Level 9.2 8.7-10.4 mg/dL Total Bilirubin 0.3 0.2-1.0 mg/dL Aspartate Amino Transferase (AST) 15 13-40 U/L Alanine Aminotransferase (ALT) 13 7-40 U/L Alkaline Phosphatase 121 H 46-116 U/L Total Protein 6.3 5.7-8.2 g/dL Albumin 3.6 3.2-4.8 g/dL Vaginal WBC (Wet Prep) Moderate Vaginal RBC (Wet Prep) None seen Vaginal Epithelial Cells (Wet Prep) Few Vaginal Bacteria (Wet Prep) Few Vaginal Trichomonas (Wet Prep) Not present Vaginal Yeast (Wet Prep) None seen Vaginal Clue Cells (Wet Prep) Few Prothrombin Time 9.8 9.3-11.8 sec Prothrombin Time INR 0.92 0.9-1.15 Activated Partial Thromboplast Time 24.4 L 24.5-34.5 SEC Fibrinogen 460 H 177-375 mg/dL Uric Acid 7.4 3.1-7.8 mg/dL Rapid Plasma Reagin Pending Chlamydia trachomatis (IRMA) Pending Hepatitis B Surface Antigen Pending Hepatitis C Antibody Pending HIV (1&2) Antibody Negative Negative Neisseria gonorrhoeae (IRMA) Pending Rubella IgG Antibody Pending Urine Color Yellow Yellow Urine Clarity Turbid H Clear Urine pH 6.0 5.0-9.0 Urine Specific [place] 1.025 1.001-1.035 Urine Protein 1+ H Negative Urine Ketones Negative Negative Urine Blood 2+ H Negative /uL Urine Nitrite Negative Negative Urine Bilirubin Negative Negative Urine Urobilinogen Normal Negative mg/dL Urine Leukocyte Esterase 3+ Negative /uL Urine RBC 4 0 - 4 /hpf Urine WBC 43 0 - 5 /hpf Urine Squamous Epithelial Cells Mod <5 /hpf Urine Bacteria None seen None Seen /hpf Urine Hyaline Casts Few 0 - 2 /lpf Urine Mucus Few None Seen Urine Glucose Normal Normal mg/dL Urine Opiates Screen Neg NEGATIVE Urine Fentanyl Screen Neg NEGATIVE Urine Barbiturates Screen Neg NEGATIVE Urine Phencyclidine Screen Neg NEGATIVE Urine Amphetamines Screen Neg NEGATIVE Urine Benzodiazepines Screen Neg NEGATIVE Urine Cocaine Screen Neg NEGATIVE Urine Cannabinoids Screen Neg NEGATIVE Consulting with Regarding called Dr Seo for possible assisted delivery as vertex sstill at -1 station and patient does not have urge to push Ineffective pushing effort. Will come in for delivery. Assessment Assessment IUP at 41w 2d No Care Obesity Category 2 FHR tracing 2nd stage of labor Plan Plan Continue amnioinfusion and position changes to relieve cord compression, facilitate descent Supportive Care Dr Seo on her way for delivery Plan discussed with: Patient ISAAC GALLEGOS MARGARITA Sep 10, 2024 08:48
[2024-09-10] MEDS: ACETAMINOPHEN 325 MG TAB PO PRN (14:48)
[2024-09-11] MEDS: DOCUSATE SOD 100 MG CAP PO PRN (00:08)
[2024-09-11 03:20] VITALS: BP 112/56; PULSE 67; RESP 14; TEMP 98.2; O2SAT 97
--- NOTE | 2024-09-11 04:31 | DVHPN2 ---
Chief Complaints Patient reports: No new complaints (Pt is ambulating and voding freely, dneis any current discomfort and lochia is WNL. Pt denies any s/s of blues. Desires discharge. ) Nursing reports: No new complaints Objective Vitals Vital Signs Date Time Temp Pulse Resp B/P (MAP) Pulse Ox O2 Delivery O2 Flow Rate FiO2 09/11/24 03:20 98.2 67 14 112/56 (74) 97 98.2 09/10/24 19:15 Room Air Medications Current Medications Medications (Trade) Dose Ordered Sig/Emily Route PRN Reason Start Time Stop Time Status Last Admin Docusate Sodium (Colace Capsule) 100 mg HS PRN PO FOR CONSTIPATION 09/10/24 23:45 09/11/24 00:08 Ibuprofen (Motrin Tablet) 800 mg Q6HR PO 09/10/24 06:00 09/11/24 00:08 General: Normal (VSS, Pt is afebrile) Head/Eyes: Normal (Denies HENRY or dizziness) ENT: Normal Neck: Normal, Supple Lungs: Normal, Normal breath sounds Cardiovascular: Normal, Regular rate and rhythm Abdominal: Normal (Fundus: Firm 2 Fb below umbilicus. ), Soft, Non tender Musculoskeletal: Normal, Full Range of Motion, Normal Inspection Extremities: Normal (Bilateral negative Diamond's sign) Skin: Normal Neurological: Normal (No deficeits) Others Lochia: Minimal/Rubra Studies Laboratory Tests 09/09/24 13:16 Test 09/09/24 13:16 Range/Units Serum Glucose 86 74-106 mg/dL Ass/Plan Assessment living S/P day 2 in stable condition Plan Motrin for pain or cramping continue vitamins 6 weeks pelvic rest Pt education Re: , contraception, normal involution changes vs danger signs May discharge home Follow up in [address]5 Zand or PRN for acute comtraception ARI GIRALDO CNM Sep 11, 2024 04:31
--- NOTE | 2024-09-11 04:35 | DVHDS2 ---
Obstetrics Discharge Summary Obstetrics Discharge Summary Date of Admission: Sep 09, 2024 Date of Discharge: Sep 11, 2024 Reason For Admission: Onset of Labor Procedures: None (No preatal care) Intrapartum Procedures: Spontaneous vaginal deliv Procedures: Antibiotics Operative Complicat: None Discharge Diagnosis: Term -Delivered Discharge Information: Activity (6 weeks pelvic rest), Diet (Routine), Medications (Motrin for pain or cramping ), Instructions (Follow up in office with Dr Seo in 2 weeks), Discharge to (Home), Accompanied by (Family member), Discarge date (09/11/24) Discharge Care Plan Instructions As stated above ARI GIRALDO CNM Sep 11, 2024 04:35
[2024-09-11 07:00] VITALS: BP 121/73; PULSE 77; RESP 20; TEMP 97.3; O2SAT 98
[2024-09-11 10:06] LABS: Rubella Antibodies, IgG <0.90 index (Immune >0.99)
[2024-09-11] MEDS: TETANUS-DIPTH-ACEL PERTUSSIS 0.5ML SYR Tdap IM ONE (12:19)
[2024-09-12 08:07] LABS: Chlamydia Trachomatis, NAA Negative (Negative); Neisseria gonorrhoeae, NAA Negative (Negative)
== END 2024-09-11 12:50 | disposition home or self-care (01) | DRG 560 ==
LOC: LDRP 08:48 → OBSVTOIN 12:10 → LDRP 12:11
PROVIDERS: ADMIT Obstetrics & Gynecology; ATTEND Obstetrics & Gynecology
PROC: 10D07Z6 Extraction of Products of Conception, Vacuum, Via Natural or Artificial Opening (ICD-10-PCS; principal; 2024-09-09)
PROC: 3E0R3BZ Introduction of Anesthetic Agent into Spinal Canal, Percutaneous Approach (ICD-10-PCS; 2024-09-09)
PROC: 0HQ9XZZ Repair Perineum Skin, External Approach (ICD-10-PCS; 2024-09-09)
PROC: 00HU33Z Insertion of Infusion Device into Spinal Canal, Percutaneous Approach (ICD-10-PCS; 2024-09-09)
DX: O48.0 Post-term pregnancy (principal); Z37.0 Single live birth; E66.01 Morbid (severe) obesity due to excess calories; O77.0 Labor and delivery complicated by meconium in amniotic fluid; O99.214 Obesity complicating childbirth; Z3A.41 41 weeks gestation of pregnancy; O70.0 First degree perineal laceration during delivery; O76 Abnormality in fetal heart rate and rhythm complicating labor and delivery; O90.81 Anemia of the puerperium
CPT/HCPCS: 36415; 59025; 59409; 62282; 76805; 76818; 80053; 80307; 81001; 81002; 84550; 85025; 85384; 85610; 85730; 86592; 86703; 86762; 86803; 86850; 86900; 86901; 87210; 87340; 90715; 94760; 96360; 96361; 96365; 96366; G0378; J2590; J3490